=== PATIENT | male | born 1975 | race African-American/Black ===

== ENCOUNTER 2018-04-16 15:44 | Emergency (ER) | payer BC, OTHER ==
[~2018-04-16] VITALS: Wt 151.0 kg
--- NOTE | 2018-04-16 15:54 | ERD ---
ER Documentation Chief Complaint Chief Complaint Neck pain HPI The patient is a 42-year-old male, presenting to the ER because of acute neck pain and stiffness that began last night, denies similar symptoms previously, the pain is worse after movement, also complains of left-sided chest discomfort with movement. He denies fever, chills, sore throat, cough, dyspnea, abdominal pain, vomiting, dysuria, diarrhea. He does not smoke, drinks socially, smokes marijuana Past medical history: Chronic low back pain Past surgical history: None ROS All systems reviewed and are negative except as per history of present illness. Medications Home Meds Active Scripts Carisoprodol* (Soma*) 350 Mg Tablet, 350 MG PO TID PRN for MUSCLE SPASMS, #15 TAB Prov:CLAUDY PALAFOX MD 04/16/18 Ibuprofen* (Motrin*) 600 Mg Tab, 600 MG PO Q6H PRN for PAIN AND OR ELEVATED TEMP, #30 TAB Prov:CLAUDY PALAFOX MD 04/16/18 Hydrocodone/Acetaminophen ([place] 5-325 Tablet) 1 Each Tablet, 1 TAB PO Q6H PRN for PAIN, #7 TAB Prov:CLAUDY PALAFOX MD 04/16/18 Allergies Allergies: Coded Allergies: No Known Allergy (Unverified , 04/16/18) Physical Exam Vitals Vital Signs Date Temp Pulse Resp B/P (MAP) Pulse Ox O2 O2 Flow FiO2 Time Delivery Rate 04/16/18 98.0 72 18 140/86 100 Room Air 18:25 (104) 04/16/18 98.2 70 19 148/92 100 15:55 (110) Physical Exam Const: No acute distress. Head: Atraumatic. Eyes: Normal Conjunctiva. ENT: Normal External Ears, Nose and Mouth. Neck: Full range of motion. No meningismus. Neck stiffness, no crepitus, worse with movement Resp: Clear to auscultation bilaterally. Cardio: Regular rate and rhythm. Left chest wall tenderness on palpation, no crepitus Abd: Soft, non distended, normal bowel sounds, non tender. Skin: No petechiae or rashes. Back: No midline or flank tenderness. Ext: No cyanosis, or edema. Neur: Awake and alert. No focal deficit Psych: Normal Mood and Affect. Result Diagram: 04/16/18 1615 04/16/18 1615 Results 24 hrs Laboratory Tests Test 04/16/18 16:15 White Blood Count 5.9 10^3/ul Red Blood Count 6.19 10^6/ul Hemoglobin 14.4 g/dl Hematocrit 44.1 % Mean Corpuscular Volume 71.2 fl Mean Corpuscular Hemoglobin 23.3 pg Mean Corpuscular Hemoglobin Concent 32.7 g/dl Red Cell Distribution Width 15.8 % Platelet Count 248 10^3/UL Mean Platelet Volume 10.9 fl Immature Granulocytes % 0.500 % Neutrophils % 49.5 % Lymphocytes % 40.7 % Monocytes % 7.8 % Eosinophils % 1.0 % Basophils % 0.5 % Nucleated Red Blood Cells % 0.0 /100WBC Immature Granulocytes # 0.030 10^3/ul Neutrophils # 2.9 10^3/ul Lymphocytes # 2.4 10^3/ul Monocytes # 0.5 10^3/ul Eosinophils # 0.1 10^3/ul Basophils # 0.0 10^3/ul Nucleated Red Blood Cells # 0.0 10^3/ul Prothrombin Time 12.2 Sec Prothrombin Time Ratio 1.0 INR International Normalized Ratio 0.89 Activated Partial Thromboplast Time 28.3 Sec D-Dimer 443.58 ng/ml D-Dimer Comment Sodium Level 141 mmol/L Potassium Level 4.1 mmol/L Chloride Level 101 mmol/L Carbon Dioxide Level 27 mmol/L Anion Gap 13 Blood Urea Nitrogen 9 mg/dl Creatinine 0.83 mg/dl Est Glomerular Filtrat Rate mL/min > 60 mL/min Glucose Level 102 mg/dl Calcium Level 9.3 mg/dl Troponin I < 0.012 ng/ml Current Medications Medications Dose Sig/Darrell Start Time Status Last (Trade) Ordered Route PRN Stop Time Admin Dose Reason Admin Morphine 4 mg ONCE STAT 04/16/18 DC 04/16/18 Sulfate IV 16:03 04/16/18 16:23 (morphine) 16:12 Ondansetron 4 mg ONCE STAT 04/16/18 DC 04/16/18 HCl (Zofran IV 16:03 04/16/18 16:23 Inj) 16:12 Ketorolac 30 mg ONCE STAT 04/16/18 DC 04/16/18 Tromethamine IV 16:03 04/16/18 16:23 (Toradol) 16:12 Procedures/[place] [id number] Radiology Main Line: [phone] DIAGNOSTIC IMAGING REPORT Patient: FRED GUERRERO : 1975 Age: 42 Sex: M [id number] DOS: 04/16/18 1704 Ordering MD: CLAUDY PALAFOX MD Location: E/R Room/Bed: PROCEDURE: CT Cervical Spine without contrast. CLINICAL INDICATION: Pain TECHNIQUE: A CT of the cervical spine was performed on a [employer]- slice CT scanner utilizing thin section axial images from the skull base through the thoracic inlet. Sagittal and coronal reformatted images were made. The CTDIvol is 22.34 mGy and the DLP is 611.38 mGycm. DICOM images are available. One or more of the following dose reduction techniques were utilized: 1.) Automated exposure control 2.) Adjustment of the mA +/- kV according to patient's size 3.) Use of iterative reconstruction technique. COMPARISON: No prior studies are available for comparison. FINDINGS: No acute fracture of the cervical spine is detected. Vertebral body heights are maintained. Straightening of the normal lordosis with mild dextroscoliosis. No prevertebral soft tissue swelling or foreign body. Disc heights are relatively well maintained. Multilevel small disc bulges or protrusions result in mild to moderate stenosis of the spinal canal at C3-C4, C4-C5, C5-C6. No severe stenosis of the spinal canal. No significant neural foraminal stenosis is detected in the cervical spine. No acute abnormality of the imaged lung apices. IMPRESSION: No acute fracture of the cervical spine. Straightening of the normal lordosis may be positional or related to muscle spasm. Multilevel small disc bulges or protrusions resulting in mild to moderate multilevel narrowing of the spinal canal, most pronounced at C5-C6 where there is moderate stenosis. RPTAT:AAJJ Physician Placido Date Time Electronically viewed and signed by Physician Placido on 04/16/2018 17:43 RF/ CC: CLAUDY PALAFOX MD [id number] [place] [id number] Radiology Main Line: [phone] DIAGNOSTIC IMAGING REPORT Patient: FRED GUERRERO : 1975 Age: 42 Sex: M MR #: [id number] DOS: 04/16/18 1603 Ordering MD: CLAUDY PALAFOX MD Location: E/R Room/Bed: PROCEDURE: XR Chest. CLINICAL INDICATION: chest pain TECHNIQUE: Single frontal view of the chest was obtained COMPARISON: None FINDINGS: The heart and mediastinum are within normal limits. The lungs are clear. There is no pleural effusion or pneumothorax. RPTAT: AA IMPRESSION: No acute disease. .Gumaro Nielsen MD, MD Date Time Electronically viewed and signed by .Gumaro Nielsen MD, MD on 04/16/2018 16:37 .S/ CC: CLAUDY PALAFOX MD [phone] EKG: At 3:49 PM read by emergency physician Rate/Rhythm: Normal Sinus Rhythm 61 beats/min QRS, ST, T-waves: No ST elevation, no T inversion Impression: Normal EKG EKG: At 5:06 PM read by emergency physician Rate/Rhythm: Normal Sinus Rhythm 56 beats/min QRS, ST, T-waves: No ST elevation, no T inversion Impression: Normal EKG MEDICAL MAKING DECISION: The patient is a 42-year-old male, presenting with acute cervical spasm, treated with morphine 4 mg IV for pain, Zofran 4 mg IV for now sent with good response, stable for outpatient follow-up The differential diagnoses considered include but are not limited to sprain, contusion, internal derangement Departure Diagnosis: Primary Impression: Neck muscle spasm Condition: Good Comments He was discharged with 7 tablets of [place], Motrin, Soma The patient's blood pressure was elevated (>120/80) but appears stable without evidence of hypertension emergency or urgency. The patient was counseled about the risks of hypertension and urged to pursue outpatient monitoring and therapy within a week with their primary care physician. I discussed the findings with the patient. I advised the patient to follow-up with the primary physician in about 2-3 days, sooner if needed and return if any concern. Disclaimer: Inadvertent spelling and grammatical errors are likely due to EHR/dictation software use and do not reflect on the overall quality of patient care. Also, please note that the electronic time recorded on this note does not necessarily reflect the actual time of the patient encounter. CLAUDY PALAFOX MD Apr 16, 2018 15:54
[2018-04-16] MEDS ORDERED: ONDANSETRON 4 MG INJ IV STA (16:03)
[2018-04-16] MEDS ORDERED: morphine 4 MG/ML VIAL IV STA (16:03)
[2018-04-16] MEDS ORDERED: KETOROLAC 30 MG INJ IV STA (16:03)
[2018-04-16] MEDS ORDERED: IBUP-1542 PO (17:57)
[2018-04-16] MEDS ORDERED: HYDR-4011 PO (17:57)
[2018-04-16] MEDS ORDERED: CARI350T PO (17:57)
[2018-04-16 18:25] VITALS: BP 140/86; PULSE 72; RESP 18
== END 2018-04-16 18:28 | disposition home or self-care (01) ==
LOC: E/R 15:44
DX: M62.838 Other muscle spasm (principal); R07.9 Chest pain, unspecified
CPT/HCPCS: 36415; 71045; 72125; 80048; 84484; 85025; 85378; 85610; 85730; 93005; 96374; 96375; 99285; J1885; J2270; J2405